=== PATIENT | female | born 2000 | race American Indian/Alaskan Native ===

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

== ENCOUNTER 2020-06-10 17:42 | Emergency (ER) | payer MEDICAID | END 2020-06-10 18:14 | disposition left against medical advice (07) | LOC: ED 17:42 | DX: R51.9 Headache, unspecified (principal); Z53.21 Procedure and treatment not carried out due to patient leaving prior to being seen by health care provider ==

== ENCOUNTER 2020-08-21 11:37 | Emergency (ER) | payer MEDICAID ==
[2020-08-21 12:38] VITALS: BP 108/45
[2020-08-21 13:20] LABS: Bilirubin,Urine NEG (Negative); Blood,Urine NEG (Negative); Color,Urine Yellow (Yellow); Mucus,Urine FEW /HPF; Protein,Urine <15 mg/dL mg/dL (Negative); Urobilinogen,Urine < 2.0 mg/dL (<2.0)
[2020-08-21 13:22] LABS: Basophils % (Auto) 0.3 % (0.0-1.8); Eosinophils % (Auto) 0.2 % (0.0-4.3); Hematocrit 36.6 % (30.3-42.9); Hemoglobin 11.8 gm/dl (10.1-14.3); Lymphocytes # (Auto) 1.7 K/mm3 (1.2-5.4); Lymphocytes % (Auto) 32.2 % (13.4-35.0); Mean Corpuscular HGB Conc 32 % (30-34); Mean Corpuscular Volume 76 fl (79-97); Monocytes # (Auto) 0.8 K/mm3 (0.0-0.8); Monocytes % (Auto) 14.9 % (0.0-7.3); Platelet Count 275 K/mm3 (140-440); Red Blood Count 4.83 M/mm3 (3.65-5.03)
[2020-08-21 13:42] LABS: Alanine Aminotransferase 10 units/L (7-56); Albumin 3.8 g/dL (3.9-5); Blood Urea Nitrogen 6 mg/dL (7-17); Calcium 9.5 mg/dL (8.4-10.2); Hemolysis Index 2
[2020-08-21 13:46] LABS: BUN/Creatinine Ratio 12
--- NOTE | 2020-08-21 14:29 | Emergency Department Report ---
ED General Adult HPI - General Chief complaint: Pain General Stated complaint: ABDOMIN AND BACK PAIN LEG CRAMPS Time Seen by Provider: 08/21/20 12:47 Source: patient Mode of arrival: Ambulatory Limitations: No Limitations - History of Present Illness Initial comments: Patient is a 19-year-old female presents emergency room complaints of lower abdominal cramping and lower back discomfort that began 3 to 4 days ago. she denies any nausea, vomiting, diarrhea, dysuria, vaginal discharge, vaginal bleeding, urinary symptoms. Patient states that she is currently and had her confirmed by [facility] customer field representative but has not yet had an ul trasound. She states that she does not know how far along she is. She states her last menstrual cycle was June 26. No past medical history. No allergies to medications. /P: 1/A: 0 - Related Data Home Medications Medication Instructions Recorded Confirmed Last Taken Ferrous Sulfate [Iron 325 MG] 1 tab PO TID 12/28/18 12/28/18 12/26/18 Vit-Fe Fumar-FA [ 1 tab PO DAILY 12/28/18 12/28/18 12/26/18 Vitamin] Allergies Allergy/AdvReac Type Severity Reaction Status Date / Time No Known Allergies Allergy Verified 11/12/18 21:59 ED Review of Systems ROS: Stated complaint: ABDOMIN AND BACK PAIN LEG CRAMPS Other details as noted in HPI Comment: All other systems reviewed and negative ED Past Medical Hx - Past Medical History Previous Medical History?: No Hx Hypertension: No Hx Diabetes: No Hx Deep Vein Thrombosis: No Hx Renal Disease: No Hx Sickle Cell Disease: No Hx Seizures: No Hx Psychiatric Treatment: (ADHD) Hx Asthma: No Hx HIV: No - Surgical History Past Surgical History?: Yes Additional Surgical History: - Social History Smoking Status: Never Smoker - Medications Home Medications: Home Medications Medication Instructions Recorded Confirmed Last Taken Type Ferrous Sulfate [Iron 325 MG] 1 tab PO TID 12/28/18 12/28/18 12/26/18 History Vit-Fe Fumar-FA [ 1 tab PO DAILY 12/28/18 12/28/18 12/26/18 History Vitamin] ED Physical Exam - General Limitations: No Limitations General appearance: alert, in no apparent distress - Head Head exam: Present: atraumatic, normocephalic - Eye Eye exam: Present: normal appearance - ENT ENT exam: Present: mucous membranes moist - Respiratory Respiratory exam: Present: normal lung sounds bilaterally. Absent: respiratory distress, wheezes, rales, rhonchi, stridor, chest wall tenderness, accessory muscle use, decreased breath sounds, prolonged expiratory - Cardiovascular Cardiovascular Exam: Present: regular rate, normal rhythm, normal heart sounds. Absent: systolic murmur, diastolic murmur, rubs, gallop - GI/Abdominal GI/Abdominal exam: Present: soft, normal bowel sounds. Absent: distended, tenderness, guarding, rebound, rigid - Back Exam Back exam: Present: normal inspection, full ROM. Absent: CVA tenderness (R), CVA tenderness (L), paraspinal tenderness, vertebral tenderness - Neurological Exam Neurological exam: Present: alert, oriented X3 - Psychiatric Psychiatric exam: Present: normal affect, normal mood - Skin Skin exam: Present: warm, dry, intact ED Course Vital Signs 08/21/20 12:34 Temperature 99.2 F Pulse Rate 86 Respiratory 16 Rate Blood Pressure 108/45 O2 Sat by Pulse 100 Oximetry ED Medical Decision Making - Lab Data Result diagrams: 08/21/20 13:05 08/21/20 13:05 Lab Results 08/21/20 08/21/20 08/21/20 Range/Units 13:05 13:05 13:05 WBC 5.1 (4.5-11.0) K/mm3 RBC 4.83 (3.65-5.03) M/mm3 Hgb 11.8 (10.1-14.3) gm/dl Hct 36.6 (30.3-42.9) % MCV 76 L (79-97) fl MCH 25 L (28-32) pg MCHC 32 (30-34) % RDW 18.0 H (13.2-15.2) % Plt Count 275 (140-440) K/mm3 Lymph % (Auto) 32.2 (13.4-35.0) % [place] % (Auto) 14.9 H (0.0-7.3) % Eos % (Auto) 0.2 (0.0-4.3) % Baso % (Auto) 0.3 (0.0-1.8) % Lymph # (Auto) 1.7 (1.2-5.4) K/mm3 [place] # (Auto) 0.8 (0.0-0.8) K/mm3 Eos # (Auto) 0.0 (0.0-0.4) K/mm3 Baso # (Auto) 0.0 (0.0-0.1) K/mm3 Seg Neutrophils % 52.4 (40.0-70.0) % Seg Neutrophils # 2.7 (1.8-7.7) K/mm3 Sodium 135 L (137-145) mmol/L Potassium 4.3 (3.6-5.0) mmol/L Chloride 99.7 (98-107) mmol/L Carbon Dioxide 23 (22-30) mmol/L Anion Gap 17 mmol/L BUN 6 L (7-17) mg/dL Creatinine 0.5 L (0.6-1.2) mg/dL Estimated GFR > 60 ml/min BUN/Creatinine Ratio 12 % Glucose 77 (65-100) mg/dL Calcium 9.5 (8.4-10.2) mg/dL Total Bilirubin 0.20 (0.1-1.2) mg/dL AST 14 (5-40) units/L ALT 10 (7-56) units/L Alkaline Phosphatase 54 (35-129) units/L Total Protein 7.4 (6.3-8.2) g/dL Albumin 3.8 L (3.9-5) g/dL Albumin/Globulin Ratio 1.1 % HCG, Quant 330731 H (0-4) mIU/mL Urine Color (Yellow) Urine Turbidity (Clear) Urine pH (5.0-7.0) Ur Specific [place] (1.003-1.030) Urine Protein (Negative) mg/dL Urine Glucose (UA) (Negative) mg/dL Urine Ketones (Negative) mg/dL Urine Blood (Negative) Urine Nitrite (Negative) Urine Bilirubin (Negative) Urine Urobilinogen (<2.0) mg/dL Ur Leukocyte Esterase (Negative) Urine WBC (Auto) (0.0-6.0) /HPF Urine RBC (Auto) (0.0-6.0) /HPF U Epithel Cells (Auto) (0-13.0) /HPF Urine Mucus /HPF 08/21/ Range/Units Unknown WBC (4.5-11.0) K/mm3 RBC (3.65-5.03) M/mm3 Hgb (10.1-14.3) gm/dl Hct (30.3-42.9) % MCV (79-97) fl MCH (28-32) pg MCHC (30-34) % RDW (13.2-15.2) % Plt Count (140-440) K/mm3 Lymph % (Auto) (13.4-35.0) % [place] % (Auto) (0.0-7.3) % Eos % (Auto) (0.0-4.3) % Baso % (Auto) (0.0-1.8) % Lymph # (Auto) (1.2-5.4) K/mm3 [place] # (Auto) (0.0-0.8) K/mm3 Eos # (Auto) (0.0-0.4) K/mm3 Baso # (Auto) (0.0-0.1) K/mm3 Seg Neutrophils % (40.0-70.0) % Seg Neutrophils # (1.8-7.7) K/mm3 Sodium (137-145) mmol/L Potassium (3.6-5.0) mmol/L Chloride (98-107) mmol/L Carbon Dioxide (22-30) mmol/L Anion Gap mmol/L BUN (7-17) mg/dL Creatinine (0.6-1.2) mg/dL Estimated GFR ml/min BUN/Creatinine Ratio % Glucose (65-100) mg/dL Calcium (8.4-10.2) mg/dL Total Bilirubin (0.1-1.2) mg/dL AST (5-40) units/L ALT (7-56) units/L Alkaline Phosphatase (35-129) units/L Total Protein (6.3-8.2) g/dL Albumin (3.9-5) g/dL Albumin/Globulin Ratio % HCG, Quant (0-4) mIU/mL Urine Color Yellow (Yellow) Urine Turbidity Clear (Clear) Urine pH 7.0 (5.0-7.0) Ur Specific [place] 1.018 (1.003-1.030) Urine Protein <15 mg/dl (Negative) mg/dL Urine Glucose (UA) Neg (Negative) mg/dL Urine Ketones Neg (Negative) mg/dL Urine Blood Neg (Negative) Urine Nitrite Neg (Negative) Urine Bilirubin Neg (Negative) Urine Urobilinogen < 2.0 (<2.0) mg/dL Ur Leukocyte Esterase Neg (Negative) Urine WBC (Auto) 1.0 (0.0-6.0) /HPF Urine RBC (Auto) 6.0 (0.0-6.0) /HPF U Epithel Cells (Auto) 2.0 (0-13.0) /HPF Urine Mucus Few /HPF - Radiology Data Radiology results: report reviewed Ordering Physician: TUAN ESPINOZA Date of Service: 08/21/20 Procedure(s): US OB <= 14 weeks fetus Accession Number(s): [id number] cc: TUAN ESPINOZA Limited OB Ultrasound HISTORY: , abd pain. TECHNIQUE: Grayscale and color imaging performed. COMPARISON: None FINDINGS: Uterus measures 14.6 x 5.3 x 8.5 cm and appears normal. A single viable intrauterine gestation with crown-rump length of 20 cm corresponding with an EGA of 8 weeks and 4 days. Mean sac diameter is 51 mm corresponding with an EGA of 10 weeks and 6 days. Overall EGA by ultrasound is 9 weeks and 5 days with heart rate of 176 bpm. No significant pelvic free fluid. There is a likely functional cyst in the right ovary measuring 2.7 cm. Left ovary is unremarkable. IMPRESSION: 1. Single viable intrauterine gestation. 2. Simple right ovarian cyst, likely functional. Signer Name: Az Guo MD Signed: 08/21/2020 3:21 PM Workstation Name: [id number] Transcribed By: Dictated By: Az Guo MD Electronically Authenticated By: Az Guo MD Signed Date/Time: 08/21/20 152 DD/ 152 TD/TT: - Medical Decision Making Patient is a 19-year-old female presents emergency room complaints of lower abdominal cramping and lower back discomfort that began 3 to 4 days ago. she denies any nausea, vomiting, diarrhea, dysuria, vaginal discharge, vaginal bleeding, urinary symptoms. Patient states that she is currently and had her confirmed by [facility] customer field representative but has not yet had an ultrasound. She states that she does not know how far along she is. She states her last menstrual cycle was June 26. No past medical history. No allergies to medications. /P: 1/A: 0. vitals are normal. No abdominal tenderness on exam, no guarding, no rebound, no rigidity, normal bowel sounds, no peritoneal signs. labs are stable. hcg quant is 213550. UA is WNL. ob us: 1. Single viable intrauterine gestation. 2. Simple right ovarian cyst, likely functional. Discussed all results with patient. Advised patient Please increase your fluid intake. Please practice pelvic rest. May take Tylenol as needed for discomfo rt. Please continue to take a vitamin [id number]. Follow-up with your [facility] TENDER. Return to emergency room for any new or worse symptoms. Critical care attestation.: If time is entered above; I have spent that time in minutes in the direct care of this critically ill patient, excluding procedure time. ED Disposition Clinical Impression: Abdominal cramping Qualifiers: Weeks of gestation: 9 weeks Qualified Code(s): Z3A.09 - 9 weeks gestation of Ovarian cyst Qualifiers: Laterality: right Qualified Code(s): N83.201 - Unspecified ovarian cyst, right side Low back pain Qualifiers: Chronicity: acute Back pain laterality: unspecified Sciatica presence: without sciatica Qualified Code(s): M54.5 - Low back pain Disposition: - TO HOME OR SELFCARE Is pt being admited?: No Does the pt Need Aspirin: No Condition: Stable Additional Instructions: Please increase your fluid intake. Please practice pelvic rest. May take Tylenol as needed for discomfort. Please continue to take a vitamin [id number]. Follow-up with your MON[facility] ST[facility]AGE BIN TENDER. Return to emergency room for any new or worse symptoms. Referrals: [facility] [Provider Group] - 2-3 Days Forms: Work/School Release Form(ED) Time of Disposition: 15:31 Print Language: TANZANIAN
--- NOTE | 2020-08-21 15:25 | Ultrasound Report ---
Limited OB Ultrasound HISTORY: , abd pain. TECHNIQUE: Grayscale and color imaging performed. COMPARISON: None FINDINGS: Uterus measures 14.6 x 5.3 x 8.5 cm and appears normal. A single viable intrauterine gestation with crown-rump length of 20 cm corresponding with an EGA of 8 weeks and 4 days. Mean sac diameter is 51 mm corresponding with an EGA of 10 weeks and 6 days. Overa ll EGA by ultrasound is 9 weeks and 5 days with heart rate of 176 bpm. No significant pelvic free fluid. There is a likely functional cyst in the right ovary measuring 2.7 cm. Left ovary is unremarkable. IMPRESSION: 1. Single viable intrauterine gestation. 2. Simple right ovarian cyst, likely functional. Signer Name: Az Guo MD Signed: 08/21/2020 3:21 PM Workstation Name: [id number]
== END 2020-08-21 15:35 | disposition home or self-care (01) ==
LOC: ED 11:37
DX: O34.81 Maternal care for other abnormalities of pelvic organs, first trimester (principal); O26.891 Other specified pregnancy related conditions, first trimester; N83.201 Unspecified ovarian cyst, right side; M54.5 Low back pain; Z3A.09 9 weeks gestation of pregnancy; Z98.890 Other specified postprocedural states; Z79.899 Other long term (current) drug therapy
CPT/HCPCS: 36415; 76801; 80053; 81001; 84702; 85025

== ENCOUNTER 2021-01-07 23:59 | Outpatient (CLI) | payer MEDICAID ==
[2021-01-08 00:26] VITALS: BP 113/53
[2021-01-08 01:33] LABS: Bacteria,Urine 1+ /HPF (Negative); Bilirubin,Urine NEG (Negative); Blood,Urine NEG (Negative); Color,Urine Colorless (Yellow); Hyaline Casts,Urine 2 /LPF; Protein,Urine <15 mg/dL mg/dL (Negative); Urobilinogen,Urine < 2.0 mg/dL (<2.0)
== END 2021-01-08 01:57 | disposition home or self-care (01) ==
LOC: TRG 23:59 → APU 01-08 → TRG 01-08 01:57
PROVIDERS: ATTEND Obstetrics & Gynecology
DX: Z34.93 Encounter for supervision of normal pregnancy, unspecified, third trimester (principal); Z3A.28 28 weeks gestation of pregnancy
CPT/HCPCS: 59025; 81001

== ENCOUNTER 2021-02-13 19:09 | Outpatient (CLI) | payer MEDICAID ==
[2021-02-13] MEDS ORDERED: LACTATED RINGERS 500 ML IV ONE (19:31)
[2021-02-13 20:24] LABS: Bacteria,Urine 1+ /HPF (Negative); Bilirubin,Urine NEG (Negative); Blood,Urine NEG (Negative); Color,Urine Yellow (Yellow); Mucus,Urine FEW /HPF; Protein,Urine <15 mg/dL mg/dL (Negative); Urobilinogen,Urine < 2.0 mg/dL (<2.0)
[2021-02-13 23:05] VITALS: BP 122/58
== END 2021-02-13 23:52 | disposition home or self-care (01) ==
LOC: TRG 19:09 → APU 19:13 → TRG 23:52
PROVIDERS: ATTEND Obstetrics & Gynecology
DX: O36.8130 Decreased fetal movements, third trimester, not applicable or unspecified (principal); Z3A.33 33 weeks gestation of pregnancy
CPT/HCPCS: 81001; 96360; 96361; J7120

== ENCOUNTER 2021-03-04 01:31 | Outpatient (CLI) | payer MEDICAID ==
[2021-03-04 02:02] VITALS: BP 124/56
[2021-03-04 02:29] LABS: Bilirubin,Urine NEG (Negative); Blood,Urine NEG (Negative); Color,Urine Straw (Yellow); Mucus,Urine FEW /HPF; Protein,Urine <15 mg/dL mg/dL (Negative); Urobilinogen,Urine < 2.0 mg/dL (<2.0)
[2021-03-04 02:50] LABS: RBC,Urine < 1.0 /HPF (0.0-6.0)
== END 2021-03-04 03:20 | disposition home or self-care (01) ==
LOC: TRG 01:31 → APU 01:32 → TRG 03:20
PROVIDERS: ATTEND Obstetrics & Gynecology
DX: O47.03 False labor before 37 completed weeks of gestation, third trimester (principal); Z3A.35 35 weeks gestation of pregnancy
CPT/HCPCS: 59025; 81001

== ENCOUNTER 2021-03-07 18:02 | Outpatient (CLI) | payer MEDICAID ==
[2021-03-07 20:32] LABS: Bilirubin,Urine NEG (Negative); Blood,Urine NEG (Negative); Color,Urine Straw (Yellow); Mucus,Urine FEW /HPF; Protein,Urine <15 mg/dL mg/dL (Negative); RBC,Urine < 1.0 /HPF (0.0-6.0); Urobilinogen,Urine < 2.0 mg/dL (<2.0)
[2021-03-07 21:18] VITALS: BP 115/57
== END 2021-03-07 21:50 | disposition home or self-care (01) ==
LOC: TRG 18:02 → APU 18:03 → TRG 21:50
PROVIDERS: ATTEND Obstetrics & Gynecology
DX: Z34.93 Encounter for supervision of normal pregnancy, unspecified, third trimester (principal); Z3A.36 36 weeks gestation of pregnancy
CPT/HCPCS: 81001

== ENCOUNTER 2021-03-16 00:05 | Outpatient (CLI) | payer MEDICAID ==
[2021-03-16 00:26] VITALS: BP 119/57
[2021-03-16 01:21] LABS: Bacteria,Urine 1+ /HPF (Negative); Bilirubin,Urine NEG (Negative); Blood,Urine NEG (Negative); Color,Urine Straw (Yellow); Protein,Urine <15 mg/dL mg/dL (Negative); RBC,Urine < 1.0 /HPF (0.0-6.0); Urobilinogen,Urine < 2.0 mg/dL (<2.0)
== END 2021-03-16 02:55 | disposition home or self-care (01) ==
LOC: TRG 00:05 → APU 00:14 → TRG 02:55
PROVIDERS: ATTEND Obstetrics & Gynecology
DX: Z34.93 Encounter for supervision of normal pregnancy, unspecified, third trimester (principal); Z3A.37 37 weeks gestation of pregnancy
CPT/HCPCS: 36415; 59025; 76819; 81001; 84112

== ENCOUNTER 2021-03-16 09:26 | Outpatient (CLI) | payer MEDICAID ==
[2021-03-16 12:29] VITALS: BP 115/54
--- NOTE | 2021-03-16 13:09 | Ultrasound Report ---
ULTRASOUND OBSTETRIC LIMITED ULTRASOUND BIOPHYSICAL PROFILE INDICATION / CLINICAL INFORMATION: wellbeing. Clinical Gestational Age (GA) in weeks, days: 37, 4 TECHNIQUE: Transabdominal. COMPARISON: None available. FINDINGS: BREATHING MOVEMENT = 2 GROSS BODY MOVEMENT = 2 TONE = 2 QUALITATIVE AMNIOTIC FLUID VOLUME = 2 TOTAL BIOPHYSICAL SCORE = 8/8 HEART RATE (beats per minute): 123 ADDITIONAL FINDINGS: None. IMPRESSION: 1. Biophysical Score = 8/8 Signer Name: Lopez Harris DO Signed: 03/16/2021 1:04 PM Workstation Name: [id number]
== END 2021-03-16 12:30 | disposition home or self-care (01) ==
LOC: TRG 09:26 → APU 09:29 → TRG 12:30
PROVIDERS: ATTEND Obstetrics & Gynecology
DX: Z34.93 Encounter for supervision of normal pregnancy, unspecified, third trimester (principal); Z3A.37 37 weeks gestation of pregnancy
CPT/HCPCS: 59025; 76819

== ENCOUNTER 2021-03-22 08:03 | Outpatient (CLI) | payer MEDICAID ==
[2021-03-22 08:32] VITALS: BP 123/57
== END 2021-03-22 09:02 | disposition home or self-care (01) ==
LOC: TRG 08:03 → APU 08:04 → TRG 09:02
PROVIDERS: ATTEND Obstetrics & Gynecology
DX: Z34.93 Encounter for supervision of normal pregnancy, unspecified, third trimester (principal); Z3A.38 38 weeks gestation of pregnancy
CPT/HCPCS: 59025

== ENCOUNTER 2021-04-22 21:42 | Outpatient (CLI) | payer MEDICAID ==
[2021-04-22 22:55] VITALS: BP 107/55
[2021-04-22 23:24] LABS: Basophils % (Auto) 0.6 % (0.0-1.8); Eosinophils # (Auto) 0.1 K/mm3 (0.0-0.4); Lymphocytes # (Auto) 2.3 K/mm3 (1.2-5.4); Lymphocytes % (Auto) 43.2 % (13.4-35.0); Mean Corpuscular HGB Conc 30 % (30-34); Mean Corpuscular Volume 72 fl (79-97); Monocytes # (Auto) 0.7 K/mm3 (0.0-0.8); Monocytes % (Auto) 12.5 % (0.0-7.3); Platelet Count 476 K/mm3 (140-440); Red Blood Count 4.25 M/mm3 (3.65-5.03)
[2021-04-22 23:30] LABS: Alanine Aminotransferase 10 units/L (7-56); Albumin 3.5 g/dL (3.9-5); Blood Urea Nitrogen 7 mg/dL (7-17); Calcium 8.5 mg/dL (8.4-10.2); Hemolysis Index 1
[2021-04-22 23:44] LABS: BUN/Creatinine Ratio 14
[2021-04-22 23:46] LABS: Hematocrit 30.7 % (30.3-42.9); Hemoglobin 9.2 gm/dl (10.1-14.3); Red Cell Distribution Width 21.6 % (13.2-15.2)
--- NOTE | 2021-04-23 01:09 | Cat Scan Report ---
CT ABDOMEN AND PELVIS WITH CONTRAST INDICATION / CLINICAL INFORMATION: Abdominal pain, h/o c section. TECHNIQUE: Axial CT images were obtained through the abdomen and pelvis after IV contrast. All CT sc ans at this location are performed using CT dose reduction for ALARA by means of automated exposure c ontrol. COMPARISON: None available. FINDINGS: LOWER CHEST: No significant abnormality. LIVER: No significant abnormality. GALLBLADDER: No significant abnormality. BILE DUCTS: No significant abnormality. PANCREAS: No significant abnormality. SPLEEN: No significant abnormality. ADRENALS: No significant abnormality. RIGHT KIDNEY / URETER: No significant abnormality. LEFT KIDNEY / URETER: No significant abnormality. STOMACH / SMALL BOWEL: No significant abnormality. COLON: No significant abnormality. APPENDIX: No significant abnormality. PERITONEUM: No free fluid. No free air. No fluid collection. LYMPH NODES: Mildly prominent pelvic nodes are likely reactive. VASCULAR STRUCTURES: No significant abnormality. URINARY BLADDER: No significant abnormality. REPRODUCTIVE ORGANS: Prominent uterus. 2.3 cm cyst right ovary. ADDITIONAL FINDINGS: Fluid collection anterior abdominal wall at the scar site measuring 6.3 x 1.4 cm . There is mild peripheral enhancement. Soft tissues of the anterior abdominal wall mildly inflamed. SKELETAL SYSTEM: No significant abnormality. IMPRESSION: 1. Fluid collection anterior abdominal wall with inflammation within the adjacent soft tissues. 2. uterus and physiologic appearing right ovarian cyst. Signer Name: Elver Nicholas MD Signed: 04/23/2021 1:04 AM Workstation Name: [id number]
== END 2021-04-23 02:32 | disposition home or self-care (01) ==
LOC: TRG 21:42 → APU 21:43 → TRG 04-23 02:32
PROVIDERS: ATTEND Obstetrics & Gynecology
DX: O90.89 Other complications of the puerperium, not elsewhere classified (principal); R18.8 Other ascites
CPT/HCPCS: 36415; 74177; 80053; 85025; Q9967